=== PATIENT | male | born 1990 | race Caucasian/White ===

== ENCOUNTER 2024-04-26 16:19 | Emergency (ER) | payer OTHER, SELFPAY ==
[2024-04-26 16:18] VITALS: BP 129/82; PULSE 80; RESP 14; TEMP 36.6; O2SAT 96
--- NOTE | 2024-04-26 16:29 | ED.ALLEREA ---
HPI - Allergic Reaction General Chief complaint: Allergic Reaction Stated complaint: syncopy Time Seen by Provider: 04/26/24 16:29 Source: patient Mode of arrival: EMS Limitations: no limitations History of Present Illness HPI narrative: This is a 33-year-old male who presents to the ED for chief complaint of syncopal episode while at urgent care today. He was at urgent care for allergic reaction to a bee sting for which he has a known allergy. He has never had any epi pens prescribed. States today he got stung by a bee and started to immediately have hives in the arms and chest. Reports diffuse itching but was not having any kind of tongue swelling, lip swelling or sensation of airway closure. He went to urgent care and while standing in line, had a syncopal episode. He does report a prodrome to the syncope. States that when he came to he was actually starting to feel a lot better just sitting down. He received 50 of Benadryl IV EN route. Currently he has no complaints, states the itching is improved. Denies wheezing, shortness of breath, lip swelling, tongue swelling, abdominal pain, nausea, vomiting, sweats. Related Data Allergies Allergy/AdvReac Type Severity Reaction Status Date / Time bee venom protein (honey bee) Allergy Hives Verified 04/26/24 16:26 [bees] Review of Systems Review of Systems: All systems as dictated in HPI Exam Narrative: GENERAL: Well-appearing, well-nourished, and in no acute distress. HEAD: Normocephalic, atraumatic. EYES: PERRLA and EOMI. ENT: Airway intact. No mucosal swelling or angioedema. Uvula normal. Nares clear, no rhinorrhea or epistaxis. Mucous membranes moist. Oropharynx without tonsillar hypertrophy exudate or other lesions. NECK: Supple. No adenopathy or masses. CHEST: No respiratory distress. Clear to auscultation. No wheezes rales or rhonchi. 96% room air. HEART: Regular rate and rhythm. No murmur heard. Normal peripheral pulses. ABDOMEN: Soft, nontender, nondistended, normal active bowel sounds. MSK: Normal range of motion. No edema. SKIN: Diffuse urticarial rash to upper trunk, arms and starting to extend into the bilateral neck. NEURO: Alert and oriented x4. No focal deficits. PSYCH: Normal mood and affect. Course Reevaluation(s) Reevaluation #1: Rash has drastically improved. He is feeling well and feels ready to go home. Date: 04/26/24 Time: 17:34 Vital Signs Vital signs: Vital Signs Temperature 97.8 F 04/26/24 16:18 Pulse Rate 80 04/26/24 16:18 Respiratory Rate 14 04/26/24 16:18 Blood Pressure 129/82 04/26/24 16:18 Pulse Oximetry 96 04/26/24 16:18 Oxygen Delivery Room Air 04/26/24 16:18 Temperature 97.8 F 04/26/24 16:18 Pulse Rate 80 04/26/24 16:18 Respiratory Rate 14 04/26/24 16:18 Blood Pressure 129/82 04/26/24 16:18 Pulse Oximetry 96 04/26/24 16:18 Oxygen Delivery Room Air 04/26/24 16:25 MDM - Allergic Reaction MDM Narrative Medical decision making narrative: This is a 33 yo male who presents to the ED for chief complaint of syncopal episode at urgent care followed by a bee sting at work. Vitals are normal. Exam shows diffuse urticaria and but respiratory exam is intact. Airway intact. No mucosal swelling or angioedema. He is resting comfortably in the ER bed. He did have a prodrome to the syncopal episode while standing in line at urgent care. EKG shows sinus rhythm with sinus arrhythmia. Presentation consistent with severe allergic reaction. Does not appear to be anaphylaxis today, but I did advise the patient that he needs to have an EpiPen for next time. He has been monitored here for several hours with improvement in symptoms after Benadryl, Pepcid, Solu-Medrol. Patient will be discharged in stable condition. Supportive measures discussed and return precautions given. Patient is understanding and agreeable with plan for discharge with PCP follow-up. Differential Diagnosis Differential diagnosis: Likely anaphylaxis, allergic reaction, angioedema, contact dermatitis, adverse reaction to drug, viral enanthem and urticaria ECG Data EKG #1: ECG completion date: 04/26/24 ECG completion time: 17:01 Prior ECG tracings: available for review Interpretation: Sinus rhythm with sinus arrhythmia Rate 61 Normal QRS Normal QTC No acute ischemic findings Discharge Plan Discharge Clinical Impression: Allergic reaction, Syncope Patient Disposition: Home, Self-Care Condition: Stable Instructions: Antibiotic Form Additional Instructions: Today you were seen for allergic reaction and syncopal episode. Our exam today is reassuring. Please continue taking Benadryl as needed for hives and itching. EpiPen as been prescribed. Follow-up closely with PCP on this issue. If you have any new or worsening symptoms please return to the ER for further evaluation. Prescriptions: New epinephrine [EpiPen 2-Abhilash] 0.3 mg/0.3 mL auto-injector 0.3 mg IM Q5-15M PRN (Reason: anaphylaxis) Qty: 2 0RF Rx Instructions: do not exceed 3 doses per episode Time of Disposition: 16:46
--- NOTE | 2024-04-26 16:30 | ECG_ITS ---
Test Date: 2024-04-26 17:01:52 Measurements Intervals [place] Rate: 61 P: 51 [place]: 189 QRS: 37 QRSD: 87 T: 44 QT: 403 QTc: 406 Interpretive Statements SINUS RHYTHM WITH SINUS ARRHYTHMIA POSSIBLE RIGHT VENTRICULAR CONDUCTION DELAY BORDERLINE ECG No previous ECG available for comparison Electronically Signed On 04-26-2024 18:42:08 OUTPATIENT PHARMACY MANAGER by Errol Acosta D.O.
[2024-04-26] MEDS: FAMOTIDINE 20 MG/2 ML VIAL IV PUSH (16:51)
[2024-04-26] MEDS: methylPREDNISolone SOD SUCC 40 MG VIAL IV PUSH (16:52)
[2024-04-26 17:58] VITALS: BP 115/77; PULSE 84; RESP 18; O2SAT 95
== END 2024-04-26 18:00 | disposition home or self-care (01) ==
LOC: ANHED 16:56
PROVIDERS: Emergency Provider Physician Assistant
DX: T63.441A Toxic effect of venom of bees, accidental (unintentional), initial encounter (principal); L50.9 Urticaria, unspecified; R55 Syncope and collapse
CPT/HCPCS: 93005; 96374; 96375; 99284; J2919

== ENCOUNTER 2025-05-10 19:51 | Emergency (ER) | payer OTHER, SELFPAY ==
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
[2025-05-10 20:10] VITALS: BP 127/77; PULSE 75; RESP 16; TEMP 36.4; O2SAT 96
[2025-05-11] VITALS: BP 120/74; PULSE 64; RESP 22; TEMP 37.1; O2SAT 98
[2025-05-11 01:00] VITALS: BP 117/66; PULSE 67; RESP 20; O2SAT 96
[2025-05-11] MEDS: CYCLOBENZAPRINE HCL 10 MG TABLET PO (01:59)
[2025-05-11 02:00] VITALS: BP 127/77; PULSE 66; RESP 20; O2SAT 99
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
[2025-05-11 03:29] VITALS: BP 131/70; PULSE 73; RESP 18; TEMP 37.1; O2SAT 96
== END 2025-05-11 03:33 | disposition home or self-care (01) ==
DX: S29.011A Strain of muscle and tendon of front wall of thorax, initial encounter (principal); V43.52XA Car driver injured in collision with other type car in traffic accident, initial encounter
CPT/HCPCS: 71046; 99283; A9270